=== PATIENT | female | born 2000 | race Native Hawaiian/Other Pacific Islander ===

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

== ENCOUNTER 2020-07-05 12:32 | Emergency (ER) | payer MEDICAID, OTHER ==
[2020-07-05 12:54] VITALS: BP 130/82; PULSE 75; RESP 20; TEMP 98.4
--- NOTE | 2020-07-05 13:29 | XR ---
EXAMINATION TYPE: XR hand complete RT DATE OF EXAM: 07/05/2020 COMPARISON: NONE HISTORY: Pain TECHNIQUE: Three views are submitted. FINDINGS: The osseous structures are intact. The joint spaces are preserved and there is no acute fracture or dislocation. Chronic appearing subluxation the DIP joint fifth digit. IMPRESSION: 1. No definite acute fracture or dislocation if symptoms persist, follow-up study in 7 to 10 days wo uld be suggested. 2. Chronic appearing deformity of the DIP joint of the fifth digit. Could be on the basis of previous ligamentous or soft tissue injury correlate clinically.
--- NOTE | 2020-07-05 13:49 | ED ---
Upper Extremity HPI - General Chief Complaint: Extremity Injury, Upper Stated Complaint: right thumb injury Time Seen by Provider: 07/05/20 12:55 Source: patient Mode of arrival: ambulatory Limitations: no limitations - History of Present Illness Initial Comments: Patient is a 20-year-old female presenting to the emergency department with a chief complaint of right thumb pain. Patient states about 12 pack of cans fell on her right finger. Patient states this occurred about one hour prior to arrival. Patient reports minimal pain but it appears to be exacerbated with movement. Patient states she has full range of motion of thumb. She does report some scaphoid tenderness. States there is no numbness or tingling. Denies taking medication to alleviate the symptoms. - Related Data Previous Rx's Medication Instructions Recorded Permethrin 5% Cream [Elimite] 1 applic TOPICAL ONCE #1 tube 08/15/19 Allergies Allergy/AdvReac Type Severity Reaction Status Date / Time No Known Allergies Allergy Verified 07/05/20 12:54 Review of Systems ROS Statement: Those systems with pertinent positive or pertinent negative responses have been documented in the HPI. ROS Other: All systems not noted in ROS Statement are negative. Past Medical History Past Medical History: No Reported History History of Any Multi-Drug Resistant Organisms: None Reported Additional Past Surgical History / Comment(s): left thumb Past Psychological History: No Psychological Hx Reported Smoking Status: Never smoker Past Alcohol Use History: None Reported Past Drug Use History: None Reported General Exam Limitations: no limitations General appearance: alert, in no apparent distress Head exam: Present: atraumatic, normocephalic, normal inspection Eye exam: Present: normal appearance, PERRL, EOMI Pupils: Present: normal accommodation ENT exam: Present: normal exam, normal oropharynx, mucous membranes moist Neck exam: Present: normal inspection, full ROM. Absent: tenderness Respiratory exam: Present: normal lung sounds bilaterally. Absent: respiratory distress, wheezes, rales Cardiovascular Exam: Present: regular rate, normal rhythm, normal heart sounds Extremities exam: Present: normal inspection, full ROM, tenderness (Scaphoid tenderness. First MCP joint tenderness.), normal capillary refill, other (+2 ulnar and radial possible early. Sensation intact in all the digits of the right hand.). Absent: pedal edema, joint swelling, calf tenderness Back exam: Present: normal inspection, full ROM. Absent: tenderness, CVA ten derness (R), CVA tenderness (L) Neurological exam: Present: alert, oriented X3, normal gait Psychiatric exam: Present: normal affect, normal mood Skin exam: Present: warm, dry, intact, normal color Course Vital Signs 07/05/20 12:49 Temperature 98.4 F Pulse Rate 75 Respiratory 20 Rate Blood Pressure 130/82 O2 Sat by Pulse 100 Oximetry Procedures - Orthopedic Splinting/Casting Injury #1 Side: right Upper Extremity Immobilizer: thumb spica, Justo wrap, synthetic pre-padded splint Medical Decision Making - Medical Decision Making Patient is 20-year-old female presenting to the emergency department with a chief complaint of right thumb injury. On physical examination patient does have scaphoid tenderness but has full range of motion. She is neurovascularly intact in the right thumb. X-rays are negative for acute fracture or dislocations in the right hand. Advised the patient to obtain a repeat x-ray in 7-10 days. Thumb spica was applied. Patient was offered analgesia, she declined. She was advised to alternate between Tylenol and Motrin. Apply ice compress and keep arm elevated. Strict return parameters were thoroughly discussed with patient was understanding and agreeable. Case discussed with physician. Disposition Clinical Impression: Injury of right thumb Disposition: HOME SELF-CARE Condition: Stable Instructions (If sedation given, give patient instructions): Scaphoid Fracture (ED) Additional Instructions: Follow-up with an pc support specialist to obtain repeat x-rays. Alternate between Tylenol and Motrin for pain control. Return to emergency department if symptoms worsen. Is patient prescribed a controlled substance at d/c from ED?: No Referrals: None,Stated [Primary Care Provider] - 1-2 days Paul Kiser DO [Doctor of Osteopathic Medicine] - 1-2 days Time of Disposition: 13:48
== END 2020-07-05 14:06 | disposition home or self-care (01) ==
LOC: EC 12:32
DX: S69.91XA Unspecified injury of right wrist, hand and finger(s), initial encounter (principal); W20.8XXA Other cause of strike by thrown, projected or falling object, initial encounter; Y92.69 Other specified industrial and construction area as the place of occurrence of the external cause; Y99.0 Civilian activity done for income or pay
CPT/HCPCS: 99283

== ENCOUNTER 2021-07-12 14:40 | Emergency (ER) | payer MEDICAID ==
[2021-07-12 15:43] VITALS: RESP 16
[2021-07-12 16:15] LABS: Appearance,Urine Clear (Clear); Bilirubin,Urine Negative (Negative); Blood,Urine Negative (Negative); Color,Urine Yellow; Glucose,Urine (UA) Negative (Negative); Ketones,Urine Negative (Negative); Leukocyte Esterase,Urine Negative (Negative); Nitrite,Urine Negative (Negative); PH, Urine 7.5 (5.0-8.0); Protein,Urine Trace (Negative); Specific Gravity,Urine 1.028 (1.001-1.035); Urobilinogen,Urine <2.0 mg/dL (<2.0)
[2021-07-12] MEDS ORDERED: SODIUM CHLORIDE 0.9% 1,000 ML IV STA (16:41)
[2021-07-12] MEDS ORDERED: KETOROLAC 15 MG/ML 1 ML VIAL IVP STA (16:41)
[2021-07-12] MEDS ORDERED: ONDANSETRON 4 MG/2 ML VIAL IVP STA (16:41)
--- NOTE | 2021-07-12 16:43 | ED ---
Abdominal Pain HPI - General Chief Complaint: Abdominal Pain Stated Complaint: Abd Pain Time Seen by Provider: 07/12/21 16:32 Source: patient Mode of arrival: ambulatory Limitations: no limitations - History of Present Illness Initial Comments: 21-year-old previously healthy female presents emergency room with reported nausea, vomiting, diarrhea and abdominal pain which started last night. States that she has had multiple episodes of nonbilious, nonbloody vomiting and has had difficulty holding down any water. Pain is located in the left lower quadrant and radiates into her groin. No history of similar pain in the past. Denies any abnormal vaginal bleeding or discharge. No concern for or sexually transmitted infections. Denies dysuria, hematuria or difficulty voiding. Does admit to some diarrhea which is loose and brown. No recent antibiotic use. Denies fevers. No other alleviating, precipitating or modifying factors - Related Data Home Medications Medication Instructions Recorded Confirmed No Known Home Medications 07/12/21 07/21/21 Allergies Allergy/AdvReac Type Severity Reaction Status Date / Time No Known Allergies Allergy Verified 07/21/21 09:56 Review of Systems ROS Statement: Those systems with pertinent positive or pertinent negative responses have been documented in the HPI. ROS Other: All systems not noted in ROS Statement are negative. Past Medical History Past Medical History: No Reported History History of Any Multi-Drug Resistant Organisms: None Reported Additional Past Surgical History / Comment(s): left thumb Past Psychological History: No Psychological Hx Reported Smoking Status: Never smoker Past Alcohol Use History: None Reported Past Drug Use History: None Reported General Exam Limitations: no limitations General appearance: alert, in no apparent distress Head exam: Present: atraumatic, normocephalic, normal inspection Eye exam: Present: normal appearance, PERRL, EOMI. Absent: scleral icterus, conjunctival injection, periorbital swelling ENT exam: Present: normal exam, mucous membranes moist Neck exam: Present: normal inspection. Absent: tenderness, meningismus, lymphadenopathy Respiratory exam: Present: normal lung sounds bilaterally. Absent: respiratory distress, wheezes, rales, rhonchi, stridor Cardiovascular Exam: Present: regular rate, normal rhythm, normal heart sounds. Absent: systolic murmur, diastolic murmur, rubs, gallop, clicks GI/Abdominal exam: Present: soft, tenderness (llq), normal bowel sounds. Absent: distended, guarding, rebound, rigid Extremities exam: Present: normal inspection, full ROM, normal capillary refill. Absent: tenderness, pedal edema, joint swelling, calf tenderness Back exam: Present: normal inspection Neurological exam: Present: alert, oriented X3, CN II-XII intact Psychiatric exam: Present: normal affect, normal mood Skin exam: Present: warm, dry, intact, normal color. Absent: rash Course Vital Signs 07/12/21 07/12/21 15:40 21:06 Temperature 98.4 F 98.0 F Pulse Rate 69 71 Respiratory 16 16 Rate Blood Pressure 122/81 98/61 O2 Sat by Pulse 98 98 Oximetry - Reevaluation(s) Reevaluation #1: Spoke with Dr. Williamson - patient prefers to follow up on Tuesday07/12/21 20:39 Medical Decision Making - Medical Decision Making Upon arrival patient was placed into hallway . Thorough history and physical exam was performed. IV is established the patient is given a dose of Toradol and Zofran. Laboratory studies are conducted and are within normal limits. Because of the patient's significant pain I did perform a CT of her abdomen and pelvis which demonstrates a large cystic pelvic mass probably a cyst arising from the right ovary. This is followed up with a pelvic ultrasound which demonstrates a large midline cystic pelvic mass. I did call and speak with Dr. Williamson. Patient given the option whether she would like to go home and follow up in office on Tuesday versus the hospitalist for pain control and to Dr. Williamson in the morning. Patient states her pain is improved at this time and would like to go home and follow up in office. She is instructed to call the office in the morning and states that she is instructed to be seen on Tuesday. Dr. Burroughs states the patient will likely need surgical treatment. The patient is a new or worsening symptoms she should return to the emergency room. Patient given written and verbal discharge instructions and discharged home in stable condition - Lab Data Result diagrams: 07/12/21 17:06 07/12/21 17:06 Lab Results 07/12/21 07/12/21 07/12/21 Range/Units 16:05 16:05 17:06 WBC 6.2 (3.8-10.6) k/uL RBC 4.11 (3.80-5.40) m/uL Hgb 12.3 (11.4-16.0) gm/dL Hct 37.7 (34.0-46.0) % MCV 91.6 (80.0-100.0) fL MCH 30.0 (25.0-35.0) pg MCHC 32.8 (31.0-37.0) g/dL RDW 12.6 (11.5-15.5) % Plt Count 256 (150-450) k/uL MPV 7.5 Neutrophils % 86 % Lymphocytes % 11 % Monocytes % 2 % Eosinophils % 0 % Basophils % 0 % Neutrophils # 5.3 (1.3-7.7) k/uL Lymphocytes # 0.6 L (1.0-4.8) k/uL Monocytes # 0.1 (0-1.0) k/uL Eosinophils # 0.0 (0-0.7) k/uL Basophils # 0.0 (0-0.2) k/uL Sodium (137-145) mmol/L Potassium (3.5-5.1) mmol/L Chloride (98-107) mmol/L Carbon Dioxide (22-30) mmol/L Anion Gap mmol/L BUN (7-17) mg/dL Creatinine (0.52-1.04) mg/dL Est GFR (CKD-EPI)AfAm (>60 ml/min/1.73 sqM) Est GFR (CKD-EPI)NonAf (>60 ml/min/1.73 sqM) Glucose (74-99) mg/dL Calcium (8.4-10.2) mg/dL Total Bilirubin (0.2-1.3) mg/dL AST (14-36) U/L ALT (4-34) U/L Alkaline Phosphatase (38-126) U/L Total Protein (6.3-8.2) g/dL Albumin (3.5-5.0) g/dL Lipase (23-300) U/L Urine Color Yellow Urine Appearance Clear (Clear) Urine pH 7.5 (5.0-8.0) Ur Specific [place] 1.028 (1.001-1.035) Urine Protein Trace H (Negative) Urine Glucose (UA) Negative (Negative) Urine Ketones Negative (Negative) Urine Blood Negative (Negative) Urine Nitrite Negative (Negative) Urine Bilirubin Negative (Negative) Urine Urobilinogen <2.0 (<2.0) mg/dL Ur Leukocyte Esterase Negative (Negative) Urine HCG, Qual Not Detected (Not Detectd) 07/12/21 Range/Units 17:06 WBC (3.8-10.6) k/uL RBC (3.80-5.40) m/uL Hgb (11.4-16.0) gm/dL Hct (34.0-46.0) % MCV (80.0-100.0) fL MCH (25.0-35.0) pg MCHC (31.0-37.0) g/dL RDW (11.5-15.5) % Plt Count (150-450) k/uL MPV Neutrophils % % Lymphocytes % % Monocytes % % Eosinophils % % Basophils % % Neutrophils # (1.3-7.7) k/uL Lymphocytes # (1.0-4.8) k/uL Monocytes # (0-1.0) k/uL Eosinophils # (0-0.7) k/uL Basophils # (0-0.2) k/uL Sodium 140 (137-145) mmol/L Potassium 4.1 (3.5-5.1) mmol/L Chloride 108 H (98-107) mmol/L Carbon Dioxide 23 (22-30) mmol/L Anion Gap 9 mmol/L BUN 9 (7-17) mg/dL Creatinine 0.62 (0.52-1.04) mg/dL Est GFR (CKD-EPI)AfAm >90 (>60 ml/min/1.73 sqM) Est GFR (CKD-EPI)NonAf >90 (>60 ml/min/1.73 sqM) Glucose 100 H (74-99) mg/dL Calcium 9.5 (8.4-10.2) mg/dL Total Bilirubin 0.4 (0.2-1.3) mg/dL AST 19 (14-36) U/L ALT 9 (4-34) U/L Alkaline Phosphatase 73 (38-126) U/L Total Protein 8.3 H (6.3-8.2) g/dL Albumin 4.5 (3.5-5.0) g/dL Lipase 163 (23-300) U/L Urine Color Urine Appearance (Clear) Urine pH (5.0-8.0) Ur Specific [place] (1.001-1.035) Urine Protein (Negative) Urine Glucose (UA) (Negative) Urine Ketones (Negative) Urine Blood (Negative) Urine Nitrite (Negative) Urine Bilirubin (Negative) Urine Urobilinogen (<2.0) mg/dL Ur Leukocyte Esterase (Negative) Urine HCG, Qual (Not Detectd) Disposition Clinical Impression: Abdominal pain, Ovarian cystic mass Disposition: HOME SELF-CARE Condition: Stable Instructions (If sedation given, give patient instructions): Ovarian Cyst (ED) Additional Instructions: You must call the office tomorrow to make an appointment for Tuesday. You will be seen on Tuesday by Dr. Williamson in her office. You will likely need surgery. Take 400 mg of Motrin for pain every 6 hours. Return to the ED for any new or worsening symptoms. Is patient prescribed a controlled substance at d/c from ED?: No Referrals: Deepti Williamson DO [Doctor of Osteopathic Medicine] - 1-2 days Time of Disposition: 20:54
[2021-07-12 17:10] LABS: Basophils % (A) 0 %; Eosinophils % (A) 0 %; HCT 37.7 % (34.0-46.0); HGB 12.3 gm/dL (11.4-16.0); Lymphocytes # (A) 0.6 k/uL (1.0-4.8); Lymphocytes % (A) 11 %; MCHC 32.8 g/dL (31.0-37.0); MCV 91.6 fL (80.0-100.0); Mean Platelet Volume 7.5; Monocytes # (A) 0.1 k/uL (0-1.0); Monocytes % (A) 2 %; Neutrophils # (A) 5.3 k/uL (1.3-7.7); Neutrophils % (A) 86 %; Platelet Count 256 k/uL (150-450); RBC 4.11 m/uL (3.80-5.40); RDW 12.6 % (11.5-15.5); WBC 6.2 k/uL (3.8-10.6)
[2021-07-12 17:27] LABS: ALT 9 U/L (4-34); AST 19 U/L (14-36); African American GFR (CKD) >90 (>60 ml/min/1.73 sqM); Albumin 4.5 g/dL (3.5-5.0); Alkaline Phosphatase 73 U/L (38-126); Anion Gap 9 mmol/L; Blood Urea Nitrogen 9 mg/dL (7-17); Calcium 9.5 mg/dL (8.4-10.2); Carbon Dioxide 23 mmol/L (22-30); Chloride 108 mmol/L (98-107); Glucose 100 mg/dL (74-99); Lipase 163 U/L (23-300); Non-African American GFR(CKD) >90 (>60 ml/min/1.73 sqM); Potassium 4.1 mmol/L (3.5-5.1); Sodium 140 mmol/L (137-145); Total Bilirubin 0.4 mg/dL (0.2-1.3); Total Protein 8.3 g/dL (6.3-8.2)
--- NOTE | 2021-07-12 18:18 | CT ---
EXAMINATION TYPE: CT abdomen pelvis w con DATE OF EXAM: 07/12/2021 COMPARISON: None HISTORY: Left sided pelvic pain. CT DLP: 717.8 mGycm Automated exposure control for dose reduction was used. CONTRAST: Performed with IV Contrast, patient injected with 100 mL of Isovue 300. Exam from the diaphragm to the floor the pelvis with IV contrast. Lung bases are clear. There is no pleural effusion. Heart size is normal. There is no pericardial eff usion. Liver spleen stomach pancreas gallbladder appear intact. Bile ducts are not dilated. There is no adrenal mass. Kidneys show satisfactory contrast opacification. There is no hydronephrosi s. Ureters are not dilated. Delayed images show normal renal excretion. There is no retroperitoneal a denopathy. Appendix not well seen. No sign of thickened appendix. There is large midline cystic mass. There is posterior displacement of the uterus and some effacement of the urinary bladder. Mass measures 10.5 cm in diameter. There is a smaller cyst in the right adne xal region measuring 3 cm. Mass is slightly more to the right side. There is no free fluid in the pel vis. Uterus appears normal. Urinary bladder appears intact. There is no mesenteric edema. There is no ascites or free air. There is no bowel obstruction. There is L5 spondylolysis with a minimal first-degree L5-S1 spondylolisthesis. There is thoracolumbar dextroscoliotic deformity. Bony pelvis is intact. Hip joints are intact. IMPRESSION: Large cystic pelvic mass is probably a cyst arising from the right ovary. Follow-up is recommended.
--- NOTE | 2021-07-12 20:19 | US ---
EXAMINATION TYPE: US pelvis complete transvag DATE OF EXAM: 07/12/2021 COMPARISON: CT 2020 CLINICAL HISTORY: llq pain. Pelvic pain x 2 day, N/V/D, 0 TECHNIQUE: . Transabdominal sonographic images of the pelvis were acquired. Transvaginal sonographi c images were medically necessary to better assess the following anatomy: ovaries Date of LMP: couple days ago EXAM MEASUREMENTS: Uterus: 6.5 x 4.9 x 3.7 cm Endometrial Stripe: 0.6 cm 1. Uterus: anteverted 2. Endometrium: appears wnl 3. Right Ovary: not seen due to overlying bowel gas and pelvic mass 4. Left Ovary: not seen due to overlying bowel gas and pelvic mass 5. Bilateral Adnexa: wnl 6. Posterior cul-de-sac: wnl 10.0 x 6.8 x 9.2cm cystic mass seen midline pelvis superior to uterus and bladder IMPRESSION: Is large midline cystic pelvic mass is probably arising from ovary. Normal uterus. Normal endometrium . No free fluid.
[2021-07-12 21:08] VITALS: BP 98/61; PULSE 71; TEMP 98
== END 2021-07-12 21:12 | disposition home or self-care (01) ==
LOC: EC 14:40
DX: N83.202 Unspecified ovarian cyst, left side (principal)
CPT/HCPCS: 36415; 80053; 83690; 85025; 81003; 81025; 76856; 76830; 74177; 99284; 96374; 96375; J2405; J1885; Q9967

== ENCOUNTER → 2021-07-16 | Outpatient (CLI) | payer MEDICAID ==
[2021-07-16 16:14] LABS: Basophils % (A) 1 %; Eosinophils # (A) 0.1 k/uL (0-0.7); Eosinophils % (A) 2 %; HGB 11.1 gm/dL (11.4-16.0); Lymphocytes # (A) 1.4 k/uL (1.0-4.8); Lymphocytes % (A) 41 %; MCH 29.5 pg (25.0-35.0); MCHC 31.7 g/dL (31.0-37.0); MCV 93.1 fL (80.0-100.0); Mean Platelet Volume 7.4; Monocytes # (A) 0.2 k/uL (0-1.0); Monocytes % (A) 5 %; Neutrophils # (A) 1.7 k/uL (1.3-7.7); Neutrophils % (A) 50 %; Platelet Count 232 k/uL (150-450); RBC 3.76 m/uL (3.80-5.40); RDW 12.5 % (11.5-15.5); WBC 3.4 k/uL (3.8-10.6)
== END | disposition home or self-care (01) ==
LOC: LABPAT 15:10
PROVIDERS: ATTEND Obstetrics & Gynecology Obstetrics
DX: Z01.812 Encounter for preprocedural laboratory examination (principal); R10.9 Unspecified abdominal pain; N83.209 Unspecified ovarian cyst, unspecified side
CPT/HCPCS: 36415; 85025

== ENCOUNTER 2021-07-21 09:04 | Day surgery (SDC) | payer MEDICAID ==
[~2021-07-21 09:04] MED LIST: ACETAMINOPHEN IV (For NPO) 1,000 MG in EMPTY BAG 1 BAG IVPB ONE; DEXAMETHASONE SOD PHOSPHATE 4 MG/ML 1 ML VIAL IV ONE; ONDANSETRON 4 MG/2 ML VIAL IVP ONE; Pre Op ABX Message 1 EACH MISC MISCELLANE ONE
[2021-07-21] MEDS ORDERED: LIDOCAINE 1% (10MG/ML) FOR IV START INTRADERMA ONE (10:10)
[2021-07-21] MEDS: LACTATED RINGERS 1,000 ML IV SCH ×2 (10:11→13:25)
[2021-07-21] MEDS ORDERED: MIDAZOLAM 2 MG/2 ML VIAL IV ONE (10:27)
--- NOTE | 2021-07-21 11:13 | P.PN ---
Progress Note - Text Progress Note Date: 07/21/21 Surgical note clarification. Within the body of the history and physical of states right ovarian cyst 8 cm in size, surgical plan is operative laparoscopy with drainage of right ovarian cyst.
[2021-07-21] MEDS ORDERED: MIDAZOLAM 2 MG/2 ML VIAL ONE (11:27)
[2021-07-21] MEDS ORDERED: LIDOCAINE 1% INJ 10MG/ML (20 ML MDV) ONE (11:27)
[2021-07-21] MEDS ORDERED: fentaNYL (PF) 50 MCG/ML 2 ML AMP ONE (11:27)
[2021-07-21] MEDS ORDERED: NEOSTIGMINE 1 MG/ML 10 ML VIAL ONE (11:27)
[2021-07-21] MEDS ORDERED: ROCURONIUM 10 MG/ML (5 ML VIAL) IV ONE (11:27)
[2021-07-21] MEDS ORDERED: PROPOFOL 10 MG/ML 20 ML VIAL IV ONE (11:27)
[2021-07-21] MEDS ORDERED: ACETAMINOPHEN IV (For NPO) 1,000 MG/100 ML VIAL ONE (11:27)
[2021-07-21] MEDS ORDERED: GLYCOPYRROLATE 0.2 MG/ML 2 ML VIAL ONE (11:27)
[2021-07-21] MEDS ORDERED: HYDROmorphone (PF) 1 MG/ML ONE (11:27)
[2021-07-21] MEDS ORDERED: BUPIVACAIN-EPI 0.25%-1:200,000 30 ML VIAL SQ ONE ×2 (12:10→12:19)
--- NOTE | 2021-07-21 12:27 | P.OP ---
Date of Procedure: 07/21/21 Preoperative Diagnosis: Large ovarian cyst Postoperative Diagnosis: Same Procedure(s) Performed: Operative laparoscopy, drainage of left ovarian cyst Anesthesia: STEPHON Surgeon: Deepti Williamson Amf Mechanic #1: Kezia Lyons Estimated Blood Loss (ml): 5 IV fluids (ml): 700 Urine output (ml): 100 Pathology: none sent Condition: stable Disposition: PACU Indications for Procedure: Abdominal pain, noted large ovarian cyst, simple in appearance Operative Findings: Enlarged left ovary with simple appearing cyst, upon drainage straw-colored fluid is noted. The other ovary is appreciated to be normal. Endometrial implants noted on the uterosacral ligaments posteriorly. Description of Procedure: Patient was taken to the operating suite where general anesthesia was obtained without difficulty by the anesthesia department. She was prepped and draped in normal sterile fashion in the dorsal lithotomy position. A red rubber catheter was used to drain the bladder of clear yellow urine. A speculum was placed the anterior lip of the cervix is visualized grasped with a single-tooth tenaculum and acorn uterine manipulator was advanced into the cervix as a means to manipulate the uterus throughout the procedure. Attention was then turned the patient's abdomen where in the umbilical fold a small skin incision is made. Through this incision the Veress needles placed. Once appears needles deemed to be in the proper position with a drop of CO2 pressure CO2 insufflation was allowed to occur. 3 L of gas or used to obtain pneumoperitoneum. At this time the additional port site is placed at 10 cm lateral to 7 m inferior to midline port this is a 5 mm port placed under direct visualization. The above-noted findings were visualized. A monopolar hook was placed through the right operative report any defect was made in the cyst wall, straw-colored fluid was drained from the cyst. Approximately 800 mL of fluid was drained from the cyst. The cyst was decompressed with minimal ovarian tissue appreciated for the fallopian tube. The the right ovary was visualized and normal in nature. The pelvis was then suctioned of any remaining cyst fluid. All instrument removed from the patient's abdomen after multiple pictures were taken before and after cyst drainage. The skin was closed with 4-0 Vicryl in a subarticular fashion Steri- Strips and sterile dressings were applied. Attention then turned to the patient's vaginal vault the acorn uterine macular was removed without difficulty the single-tooth tenaculum was taken off of the anterior lip of the cervix and hemostasis was appreciated. All counts were noted be correct 2 and the procedure. Patient tolerated procedure well and was taken the recovery room awake in stable condition.
[2021-07-21] MEDS: HYDROmorphone 0.5 MG/0.5 ML SYRINGE IVP PRN ×2 (12:48→13:20)
[2021-07-21 12:52] VITALS: TEMP 97.2
[2021-07-21 13:18] VITALS: RESP 16
[2021-07-21] MEDS ORDERED: IBUPROFEN 200 MG TAB PO ONE (14:31)
[2021-07-21 14:42] VITALS: BP 93/56; PULSE 64
== END 2021-07-21 15:30 | disposition home or self-care (01) ==
LOC: OR 09:04
PROVIDERS: ATTEND Obstetrics & Gynecology Obstetrics
DX: N83.202 Unspecified ovarian cyst, left side (principal); K63.9 Disease of intestine, unspecified; Z98.890 Other specified postprocedural states
CPT/HCPCS: 81025; 49322; J2250; J1100; J2710; J2405; J2001; J3010; J1170 ×2; J0131; J2704

== ENCOUNTER → 2022-07-06 | Outpatient (CLI) | payer OTHER ==
[2022-07-06 12:15] LABS: Appearance,Urine Cloudy (Clear); Bacteria,Urine Occasional /hpf; Bilirubin,Urine Negative (Negative); Blood,Urine Negative (Negative); Color,Urine Yellow; Glucose,Urine (UA) Negative (Negative); Ketones,Urine 1+ (Negative); Leukocyte Esterase,Urine Negative (Negative); Mucus,Urine Occasional /hpf; Nitrite,Urine Negative (Negative); PH, Urine 5.5 (5.0-8.0); Protein,Urine Trace (Negative); RBC,Urine 3 /hpf (0-5); Specific Gravity,Urine 1.027 (1.001-1.035); Squamous Epithelial Cell,Urine 3 /hpf (0-4); Urobilinogen,Urine <2.0 mg/dL (<2.0); WBC,Urine 1 /hpf (0-5)
--- NOTE | 2022-07-06 13:07 | XR ---
Lumbar spine HISTORY: Back pain 3 views the lumbar spine There is a dextroscoliosis centered at L1-2. Rotatory component is suspected. Bilateral spondylolysis suspected L5. There is loss of disc height at intervertebral levels L5-S1 and L4-5, minimal anteroli sthesis grade 1 L5-S1. IMPRESSION: Spondylolysis, degenerative disc disease, scoliosis.
--- NOTE | 2022-07-06 13:09 | XR ---
Thoracic spine HISTORY: Pain 3 views of the thoracic spine Reverse S-shaped scoliosis is present. There is a rotatory component. Thoracic vertebral vertebral elie dies show preserved height. There is multilevel spondylosis. No evident fracture. IMPRESSION: No acute fracture or subluxation
== END | disposition home or self-care (01) ==
LOC: LABWHC1 11:50
PROVIDERS: ATTEND Emergency Medicine
DX: S23.3XXA Sprain of ligaments of thoracic spine, initial encounter (principal); S39.012A Strain of muscle, fascia and tendon of lower back, initial encounter; M43.00 Spondylolysis, site unspecified; M51.36 Other intervertebral disc degeneration, lumbar region; M41.9 Scoliosis, unspecified; X58.XXXA Exposure to other specified factors, initial encounter
CPT/HCPCS: 72072; 72100; 81001; 81025

== ENCOUNTER → 2022-08-19 | Outpatient (CLI) | payer OTHER ==
--- NOTE | 2022-08-19 09:49 | MR ---
EXAMINATION TYPE: MR angelesine/lspine wo con DATE OF EXAM: 08/19/2022 COMPARISON: X-rays thoracic and lumbar spine July 06, 2022 HISTORY: Mid back and low back pain on right side due to lifting injury at work 2 months ago TECHNIQUE: Multiplanar, multisequence imaging of the thoracic and lumbar spine are performed without IV contrast. FINDINGS: T-SPINE: FINDINGS: Levoconvex scoliosis is seen in lower thoracic spine. Spinal cord shows normal caliber and signal as it courses the thoracic spine. Vertebral body heights are satisfactory. Mild disc space n arrowing in the midthoracic spine. Posterior disc herniations T6-C7 through the T8-T9 levels are note d. Bone marrow signal intensity is maintained. Axial images at T6-T7 level shows tiny right paracentral disc protrusion. There are larger right para central disc protrusions at T7-T8 and T8-T9 level effacing anterior thecal sac up to ventral surface of spinal cord sagittal image 8 for reference. No suspicious incidental finding the thorax. IMPRESSION: Levoconvex scoliosis with degenerative changes in the mid to lower risk spine as detailed above. L-SPINE: Dextroconvex scoliosis centered in the upper lumbar spine. Vertebral body heights are maintained. Dis c desiccation L5-S1 level is seen. Alignment is satisfactory and sagittal images. Conus medullaris no rmal in position and signal ending superior L1 level. Bone marrow signal intensity is maintained. Axial images show no large disc herniation at any lumbar level. There is [id number] multilevel facet arthropathy. Bilateral pars defect L5 level without significant spondylolisthesis. There is no spinal canal stenosis, neural foraminal narrowing, or evidence of nerve root compromise. Distended bladder partially imaged. There is partial visualization of right ovary with 2.6 cm round l esion right presacral region superior aspect right ovary favoring nonsimple cyst or cystic lesion. Fo llow-up pelvic ultrasound is advised to further evaluate and characterize. IMPRESSION: Scoliosis with multilevel degenerative change as detailed above. Nonsimple 2.6 cm cyst or cystic lesion superior aspect right ovary warrants ultrasound follow-up to further evaluate. Not see n on ultrasound July 12, 2021
== END | disposition home or self-care (01) ==
LOC: RADMRIMAIN 08:13
PROVIDERS: ATTEND Emergency Medicine
DX: S23.3XXD Sprain of ligaments of thoracic spine, subsequent encounter (principal); S39.012D Strain of muscle, fascia and tendon of lower back, subsequent encounter; M41.9 Scoliosis, unspecified; M47.816 Spondylosis without myelopathy or radiculopathy, lumbar region; N83.201 Unspecified ovarian cyst, right side
CPT/HCPCS: 72146; 72148

== ENCOUNTER → 2023-01-06 | Outpatient (CLI) | payer OTHER ==
--- NOTE | 2023-01-07 07:32 | XR ---
EXAMINATION TYPE: XR scoliosis survey DATE OF EXAM: 01/06/2023 10:49 AM COMPARISON: None CLINICAL INDICATION:Female, 22 years old with history of THORACOLUMBAR SCOLIOSIS LS SPONDYLOLYSIS; TECHNIQUE: Frontal and lateral views of the spine while standing. FINDINGS: There are 12 ribs bilaterally. There is levoscoliosis apex T8-T9. With a competent mesentery dextrosc oliosis of the lumbar spine with a rotational component. Salguero angle of the thoracic spine of 39 and a nd of the lumbar spine 21 degrees. No vertebral anomalies are identified. Vertebral heights are relat ively maintained. There is grade 1 anterolisthesis of L5 on S1 with spondylolysis. There is mild mult ilevel disc degeneration changes with osteophyte formation of the mid thoracic spine on lateral view. IMPRESSION: 1. Scoliosis changes with Salguero angle of the thoracic spine of 39 and and of the lumbar spine 21 degr ees. 2. Grade 1 anterolisthesis of L5 on S1 spondylolysis.
== END | disposition home or self-care (01) ==
LOC: RADXRMAIN 10:34
PROVIDERS: ATTEND Nurse Practitioner Family
DX: M41.35 Thoracogenic scoliosis, thoracolumbar region (principal); M51.85 Other intervertebral disc disorders, thoracolumbar region; M43.17 Spondylolisthesis, lumbosacral region
CPT/HCPCS: 72082

== ENCOUNTER 2023-12-27 21:37 | Emergency (ER) | payer MEDICAID ==
[2023-12-27 21:46] VITALS: RESP 18
[2023-12-27] MEDS: ACETAMINOPHEN TAB 500 MG TAB PO STA (22:32)
--- NOTE | 2023-12-27 22:32 | ED ---
Abdominal Pain HPI - General Chief Complaint: Abdominal Pain Stated Complaint: Abd pain,Headache Time Seen by Provider: 12/27/23 21:47 Source: patient Mode of arrival: ambulatory Limitations: no limitations - History of Present Illness Initial Comments: 23-year-old female presenting to the ED with a chief complaint of abdominal pain. Patient reports that she may be . Her last menstrual period was November 16, 2023 and is currently estimated to be 5 weeks and 6 days . Patient states over the past 5 days has had pain in her lower abdomen and some vaginal bleeding as well. Reports since onset pain has worsened in severity prompting presentation to the ED for further evaluation. Denies changes in bowel or bladder habits. Denies fever or chills. Denies chest pain or shortness of breath. No other complaints at this time. - Related Data Previous Rx's Medication Instructions Recorded Ibuprofen [Motrin] 600 mg PO Q8HR PRN #30 tab 12/28/23 Allergies Allergy/AdvReac Type Severity Reaction Status Date / Time No Known Allergies Allergy Verified 12/27/23 21:44 Review of Systems ROS Statement: Those systems with pertinent positive or pertinent negative responses have been documented in the HPI. ROS Other: All systems not noted in ROS Statement are negative. Past Medical History Past Medical History: No Reported History Additional Past Medical History / Comment(s): ovarian cyst History of Any Multi-Drug Resistant Organisms: None Reported Additional Past Surgical History / Comment(s): left thumb Past Anesthesia/Blood Transfusion Reactions: No Reported Reaction Past Psychological History: No Psychological Hx Reported Smoking Status: Never smoker Past Alcohol Use History: None Reported Past Drug Use History: None Reported General Exam Limitations: no limitations General appearance: alert, in distress Neck exam: Present: normal inspection Respiratory exam: Present: normal lung sounds bilaterally Cardiovascular Exam: Present: regular rate GI/Abdominal exam: Present: soft (Tenderness to palpation of the lower abdomen worse in the suprapubic/right lower quadrant), normal bowel sounds External exam: Present: other (Exam chaperoned by Jessica MEZA. Active vaginal bleeding. Unable to visualize cervical os secondary to bleeding.) Neurological exam: Present: alert, oriented X3 Skin exam: Present: warm, dry Course Vital Signs 12/27/23 12/27/23 12/28/23 21:41 23:45 01:20 Temperature 97.6 F 98 F Pulse Rate 98 77 82 Respiratory 18 18 18 Rate Blood Pressure 154/93 118/78 106/83 O2 Sat by Pulse 100 98 99 Oximetry Medical Decision Making - Medical Decision Making Was pt. sent in by a medical professional or institution (KANDI Marsh, CARE MANAGEMENT COORDINATOR, urgent care, hospital, or retirement...) When possible be specific @ -No Did you speak to anyone other than the patient for history (EMS, parent, family, police, friend...)? What history was obtained from this source @ -No Did you review nursing and triage notes (agree or disagree)? Why? @ -I reviewed and agree with nursing and triage notes Were old charts reviewed (outside hosp., previous admission, EMS record, old EKG, old radiological studies, urgent care reports/EKG's, retirement records)? Report findings @ -No old charts were reviewed Differential Diagnosis (chest pain, altered mental status, abdominal pain women, abdominal pain men, vaginal bleeding, weakness, fever, dyspnea, syncope, headache, dizziness, GI bleed, back pain, seizure, CVA, palpatations, mental health, musculoskeletal)? @ -Differential Vaginal Bleeding: Spontaneous , threatened , molar , ectopic , bloody show, incompetent cervix, abruptioplacenta, placenta previa, uterine rupture, dysfunctional uterine bleeding, hemorrhage, uterine fibroids, this is not meant to be an all-inclusive list. EKG interpreted by me (3pts min.). @ -None X-rays interpreted by me (1pt min.). @ -None done CT interpreted by me (1pt min.). @ -None done U/S interpreted by me (1pt. min.). @ -Ultrasound interpreted by me showing complex cystic fluid within the bilateral adnexa likely representing a complicated cyst. What testing was considered but not performed or refused? (CT, X-rays, U/S, labs)? Why? @ -None What meds were considered but not given or refused? Why? @ -None Did you discuss the management of the patient with other professionals (carolyn berkowitz i.e. KANDI Marsh, CARE MANAGEMENT COORDINATOR, lab, RT, psych nurse, social sciences department chair, ferry pilot, teacher, chief administrative officer, manager of case)? Give summary @ -No Was smoking cessation discussed for >3mins.? @ -No Was critical care preformed (if so, how long)? @ -No Were there social determinants of health that impacted care today? How? (Homelessness, low income, unemployed, alcoholism, drug addiction, transportation, low edu. Level, literacy, decrease access to med. care, prison, rehab)? @ -No Was there de-escalation of care discussed even if they declined (Discuss DNR or withdrawal of care, Hospice)? DNR status @ -No What co-morbidities impacted this encounter? (DM, HTN, Smoking, COPD, CAD, Cancer, CVA, ARF, Chemo, Hep., AIDS, mental health diagnosis, sleep apnea, morbid obesity)? @ -None Was patient admitted / discharged? Hospital course, mention meds given and route, prescriptions, significant lab abnormalities, going to OR and other pertinent info. @ -Discharge 23-year-old female presenting to the ED with complaints of right lower abdominal pain and vaginal bleeding for the past 5 days however pain worsening today prompting presentation to the ED for further evaluation. At initial onset, patient reported pain 10 out of 10 however reports it has significantly improved and now is at a 2 out of 10 in severity. Laboratory studies reviewed. Labs including CBC, chemistry panel, urinalysis, serum hCG largely unremarkable. Ultrasound showed evidence of a complex cyst. Patient discharged home in stable condition. Advise close follow-up with her OB, Dr. Williamson. Discussed strict return precautions with patient who verbalized agreement. Undiagnosed new problem with uncertain prognosis? @ -No Drug Therapy requiring intensive monitoring for toxicity (Heparin, Nitro, Insuli n, Cardizem)? @ -No Were any procedures done? @ -No Diagnosis/symptom? @ -Complicated cyst Acute, or Chronic, or Acute on Chronic? @ -Acute Uncomplicated (without systemic symptoms) or Complicated (systemic symptoms)? @ -Uncomplicated Side effects of treatment? @ -No Exacerbation, Progression, or Severe Exacerbation? @ -No Poses a threat to life or bodily function? How? (Chest pain, [place], [place], pneumonia, PE, COPD, DKA, ARF, appy, cholecystitis, CVA, Diverticulitis, Homicidal, Suicidal, threat to staff... and all critical care pts) @ -No - Lab Data Result diagrams: 12/27/23 22:31 12/27/23 22:31 Lab Results 12/27/23 12/27/23 12/27/23 Range/Units 22:00 22:31 22:31 WBC 5.8 (3.8-10.6) k/uL RBC 4.28 (3.80-5.40) m/uL Hgb 10.6 L (11.4-16.0) gm/dL Hct 34.6 (34.0-46.0) % MCV 80.8 (80.0-100.0) fL MCH 24.7 L (25.0-35.0) pg MCHC 30.6 L (31.0-37.0) g/dL RDW 16.4 H (11.5-15.5) % Plt Count 291 (150-450) k/uL MPV 7.8 Neutrophils % 52 % Lymphocytes % 38 % Monocytes % 6 % Eosinophils % 2 % Basophils % 1 % Neutrophils # 3.0 (1.3-7.7) k/uL Lymphocytes # 2.2 (1.0-4.8) k/uL Monocytes # 0.3 (0-1.0) k/uL Eosinophils # 0.1 (0-0.7) k/uL Basophils # 0.0 (0-0.2) k/uL Hypochromasia Slight Anisocytosis Slight PT (10.0-12.5) sec INR (<1.2) APTT (22.0-30.0) sec Sodium 142 (137-145) mmol/L Potassium 3.7 (3.5-5.1) mmol/L Chloride 109 H (98-107) mmol/L Carbon Dioxide 22 (22-30) mmol/L Anion Gap 11 mmol/L BUN 13 (7-17) mg/dL Creatinine 0.67 (0.52-1.04) mg/dL Est GFR (CKD-EPI)AfAm >90 (>60 ml/min/1.73 sqM) Est GFR (CKD-EPI)NonAf >90 (>60 ml/min/1.73 sqM) Glucose 92 (74-99) mg/dL Calcium 9.5 (8.4-10.2) mg/dL Total Bilirubin 0.3 (0.2-1.3) mg/dL AST 19 (14-36) U/L ALT 12 (4-34) U/L Alkaline Phosphatase 66 (38-126) U/L Total Protein 8.3 H (6.3-8.2) g/dL Albumin 4.6 (3.5-5.0) g/dL Amylase 63 (30-110) U/L Lipase 345 H (23-300) U/L HCG, Quant <2.4 mIU/mL Urine Color Light Yellow Urine Appearance Cloudy H (Clear) Urine pH 5.5 (5.0-8.0) Ur Specific [place] 1.018 (1.001-1.035) Urine Protein Negative (Negative) Urine Glucose (UA) Negative (Negative) Urine Ketones Negative (Negative) Urine Blood Large H (Negative) Urine Nitrite Negative (Negative) Urine Bilirubin Negative (Negative) Urine Urobilinogen <2.0 (<2.0) mg/dL Ur Leukocyte Esterase Negative (Negative) Urine RBC >182 H (0-5) /hpf Urine WBC 1 (0-5) /hpf Ur Squamous Epith Cells 2 (0-4) /hpf Urine Bacteria Rare H (None) /hpf Urine Mucus Rare H (None) /hpf Urine Yeast (Budding) Few H (None) /hpf Blood Type Blood Type Confirm Blood Type Recheck Bld Type Recheck Status Antibody Screen Spec Expiration Date 12/27/23 12/27/23 12/27/23 Range/Units 22:35 22:35 22:40 WBC (3.8-10.6) k/uL RBC (3.80-5.40) m/uL Hgb (11.4-16.0) gm/dL Hct (34.0-46.0) % MCV (80.0-100.0) fL MCH (25.0-35.0) pg MCHC (31.0-37.0) g/dL RDW (11.5-15.5) % Plt Count (150-450) k/uL MPV Neutrophils % % Lymphocytes % % Monocytes % % Eosinophils % % Basophils % % Neutrophils # (1.3-7.7) k/uL Lymphocytes # (1.0-4.8) k/uL Monocytes # (0-1.0) k/uL Eosinophils # (0-0.7) k/uL Basophils # (0-0.2) k/uL Hypochromasia Anisocytosis PT 11.2 (10.0-12.5) sec INR 1.0 (<1.2) APTT 23.2 (22.0-30.0) sec Sodium (137-145) mmol/L Potassium (3.5-5.1) mmol/L Chloride (98-107) mmol/L Carbon Dioxide (22-30) mmol/L Anion Gap mmol/L BUN (7-17) mg/dL Creatinine (0.52-1.04) mg/dL Est GFR (CKD-EPI)AfAm (>60 ml/min/1.73 sqM) Est GFR (CKD-EPI)NonAf (>60 ml/min/1.73 sqM) Glucose (74-99) mg/dL Calcium (8.4-10.2) mg/dL Total Bilirubin (0.2-1.3) mg/dL AST (14-36) U/L ALT (4-34) U/L Alkaline Phosphatase (38-126) U/L Total Protein (6.3-8.2) g/dL Albumin (3.5-5.0) g/dL Amylase (30-110) U/L Lipase (23-300) U/L HCG, Quant mIU/mL Urine Color Urine Appearance (Clear) Urine pH (5.0-8.0) Ur Specific [place] (1.001-1.035) Urine Protein (Negative) Urine Glucose (UA) (Negative) Urine Ketones (Negative) Urine Blood (Negative) Urine Nitrite (Negative) Urine Bilirubin (Negative) Urine Urobilinogen (<2.0) mg/dL Ur Leukocyte Esterase (Negative) Urine RBC (0-5) /hpf Urine WBC (0-5) /hpf Ur Squamous Epith Cells (0-4) /hpf Urine Bacteria (None) /hpf Urine Mucus (None) /hpf Urine Yeast (Budding) (None) /hpf Blood Type B Positive Blood Type Confirm B Positive Blood Type Recheck No Previous Record Bld Type Recheck Status CABO Indicated Antibody Screen NEGATIVE Spec Expiration Date 12/30/20232334 Disposition Clinical Impression: Complex ovarian cyst Disposition: HOME SELF-CARE Condition: Good Instructions (If sedation given, give patient instructions): Ruptured Ovarian Cyst (ED), Ovarian Cyst (ED) Additional Instructions: Please return to the Emergency Department if symptoms worsen or any other concerns. Please follow-up with your PHYSICAL THER. Prescriptions: Ibuprofen [Motrin] 600 mg PO Q8HR PRN #30 tab PRN Reason: Pain Is patient prescribed a controlled substance at d/c from ED?: No Referrals: None,Stated [Primary Care Provider] - 1-2 days Time of Disposition: 01:30
[2023-12-27 22:36] LABS: Anisocytosis Slight; Basophils % (A) 1 %; Eosinophils # (A) 0.1 k/uL (0-0.7); Eosinophils % (A) 2 %; HCT 34.6 % (34.0-46.0); HGB 10.6 gm/dL (11.4-16.0); Hypochromasia Slight; Lymphocytes # (A) 2.2 k/uL (1.0-4.8); Lymphocytes % (A) 38 %; MCH 24.7 pg (25.0-35.0); MCHC 30.6 g/dL (31.0-37.0); MCV 80.8 fL (80.0-100.0); Mean Platelet Volume 7.8; Monocytes # (A) 0.3 k/uL (0-1.0); Monocytes % (A) 6 %; Neutrophils % (A) 52 %; Platelet Count 291 k/uL (150-450); RBC 4.28 m/uL (3.80-5.40); RDW 16.4 % (11.5-15.5); WBC 5.8 k/uL (3.8-10.6)
[2023-12-27 22:49] LABS: ALT 12 U/L (4-34); AST 19 U/L (14-36); African American GFR (CKD) >90 (>60 ml/min/1.73 sqM); Albumin 4.6 g/dL (3.5-5.0); Alkaline Phosphatase 66 U/L (38-126); Amylase 63 U/L (30-110); Anion Gap 11 mmol/L; Blood Urea Nitrogen 13 mg/dL (7-17); Calcium 9.5 mg/dL (8.4-10.2); Carbon Dioxide 22 mmol/L (22-30); Chloride 109 mmol/L (98-107); Glucose 92 mg/dL (74-99); Lipase 345 U/L (23-300); Non-African American GFR(CKD) >90 (>60 ml/min/1.73 sqM); Potassium 3.7 mmol/L (3.5-5.1); Sodium 142 mmol/L (137-145); Total Bilirubin 0.3 mg/dL (0.2-1.3); Total Protein 8.3 g/dL (6.3-8.2)
[2023-12-27 23:03] LABS: HCG,Quantitative Serum <2.4 mIU/mL
[2023-12-27 23:07] LABS: Partial Thromboplastin Time 23.2 sec (22.0-30.0); Prothrombin Time 11.2 sec (10.0-12.5)
[2023-12-28] MEDS: MORPHINE SULFATE 2 MG/ML SYRINGE IVP STA (00:06)
[2023-12-28 00:35] LABS: Appearance,Urine Cloudy (Clear); Bacteria,Urine Rare /hpf; Bilirubin,Urine Negative (Negative); Blood,Urine Large (Negative); Budding Yeast,Urine Few /hpf; Color,Urine Light Yellow; Glucose,Urine (UA) Negative (Negative); Ketones,Urine Negative (Negative); Leukocyte Esterase,Urine Negative (Negative); Mucus,Urine Rare /hpf; Nitrite,Urine Negative (Negative); PH, Urine 5.5 (5.0-8.0); Protein,Urine Negative (Negative); RBC,Urine >182 /hpf (0-5); Specific Gravity,Urine 1.018 (1.001-1.035); Squamous Epithelial Cell,Urine 2 /hpf (0-4); Urobilinogen,Urine <2.0 mg/dL (<2.0); WBC,Urine 1 /hpf (0-5)
--- NOTE | 2023-12-28 01:12 | US ---
EXAM: US Pelvis Transvaginal CLINICAL HISTORY: ITS.REASON US Reason: RLQ pain, vag bleeding, TECHNIQUE: Real-time transvaginal pelvic ultrasound with image documentation. Transvaginal imaging was used for better evaluation of the endometrium and adnexa. COMPARISON: 06/28/2021 FINDINGS: Uterus/cervix: Uterus measures 6.8 x 5.1 x 2.9 cm. Normal endometrial stripe thickness. No myometrial mass. Right ovary: . Endometrium measures 0.5 cm in thickness. Right ovary is not well seen secondary to overlying bowel gas. Left ovary: Left ovary is obscured by bowel gas and large cyst. 8.9 x 9.6 x 6 cm complex cystic structure within the bilateral adnexa. Free fluid: No free fluid. Bladder: Empty bladder which cannot be evaluated with this probe. IMPRESSION: Complex cystic fluid within the bilateral adnexa likely representing a complicated cyst. Postcontrast CT of the abdomen and pelvis with oral and IV contrast recommended for further evaluation.
[2023-12-28 01:45] VITALS: BP 106/83; PULSE 82; TEMP 98
[2023-12-28] MEDS: IBUPROFEN 600 MG STARTER PACK 4 TAB BTL PO STA (02:04)
[2023-12-28] MEDS: SODIUM CHLORIDE 0.9% 1,000 ML IV STA (02:04)
== END 2023-12-28 02:05 | disposition home or self-care (01) ==
LOC: EC 21:37
DX: N83.291 Other ovarian cyst, right side (principal); N83.292 Other ovarian cyst, left side
CPT/HCPCS: 36415; 76830; 76856; 80053; 81001; 82150; 83690; 84702; 85025; 85610; 85730; 86850; 86900; 86901; 96374; 99284

== ENCOUNTER → 2024-01-23 | Outpatient (CLI) | payer MEDICAID ==
--- NOTE | 2024-01-23 19:06 | CT ---
EXAMINATION TYPE: CT lumbar spine wo con DATE OF EXAM: 01/23/2024 6:21 PM COMPARISON: None HISTORY: low back pain CT DLP: 579 mGycm Automated exposure control for dose reduction was used. Unenhanced CT of the lumbar spine was performed. Bone and soft tissue window settings are submitted as well as coronal and sagittal reconstructions. Findings: There is moderate dextroscoliosis of the lumbar spine. On the lateral view, the lumbar vertebral segments are normal in height and alignment there is no fra cture or subluxation. The disc spaces are well-maintained in height and there is no significant degenerative disc disease. There is bilateral spondylolysis of L5 without spondylolisthesis of L5 on S1. There are no large disc herniations. There is no spinal stenosis. There is no bony encroachment of the neural foramina. Visualized sacrum and SI joints are normal. IMPRESSION: 1. Moderate dextroscoliosis of the lumbar spine. 2. Bilateral spondylolysis of L5 without spondylolisthesis of L5 on S1. 3. No significant degenerative disc disease.
== END | disposition home or self-care (01) ==
LOC: RADCTMAIN 17:45
PROVIDERS: ATTEND Orthopaedic Surgery
DX: M41.86 Other forms of scoliosis, lumbar region (principal)
CPT/HCPCS: 72131

== ENCOUNTER 2024-03-22 01:53 | Emergency (ER) | payer MEDICAID ==
--- NOTE | 2024-03-22 02:22 | ED ---
Abdominal Pain HPI - General Source: patient, RN notes reviewed Mode of arrival: ambulatory Limitations: no limitations <Ferny Mascorro - Last Filed: 03/22/24 05:34> <Lloyd Leroy - Last Filed: 03/22/24 08:03> - General Chief Complaint: Abdominal Pain Stated Complaint: abd pain groin pain 8 weeks Time Seen by Provider: 03/22/24 02:03 - History of Present Illness Initial Comments: 23-year-old female approximately 8 weeks based on last menstrual period (January 23, 2024) G1, presenting to the ED with complaint of abdominal pain. Patient reports yesterday onset of some left lower abdominal pain. Patient states pain seems to radiate to her vaginal area bottom, and to her left flank. Since onset of pain also notes that she has had some difficulties urinating reporting some urinary hesitancy. Otherwise, patient denies vaginal bleeding or vaginal discharge. No changes in bowel habits. No fever or chills. No other complaints at this time. (Ferny Mascorro) - Related Data Previous Rx's Medication Instructions Recorded Ibuprofen [Motrin] 600 mg PO Q8HR PRN #30 tab 12/28/23 Allergies Allergy/AdvReac Type Severity Reaction Status Date / Time No Known Allergies Allergy Verified 03/22/24 02:00 Review of Systems ROS Other: All systems not noted in ROS Statement are negative. <Ferny Mascorro - Last Filed: 03/22/24 05:34> ROS Other: All systems not noted in ROS Statement are negative. <Lloyd Leroy - Last Filed: 03/22/24 08:03> ROS Statement: Those systems with pertinent positive or pertinent negative responses have been documented in the HPI. Past Medical History Past Medical History: No Reported History Additional Past Medical History / Comment(s): ovarian cyst History of Any Multi-Drug Resistant Organisms: None Reported Additional Past Surgical History / Comment(s): left thumb Past Anesthesia/Blood Transfusion Reactions: No Reported Reaction Past Psychological History: No Psychological Hx Reported Smoking Status: Never smoker Past Alcohol Use History: None Reported Past Drug Use History: None Reported <Ferny Mascorro - Last Filed: 03/22/24 05:34> General Exam Limitations: no limitations General appearance: alert, in no apparent distress Eye exam: Present: normal appearance Neck exam: Present: normal inspection Respiratory exam: Present: normal lung sounds bilaterally Cardiovascular Exam: Present: regular rate GI/Abdominal exam: Present: soft (Left lower quadrant tenderness to palpation. No rebound guarding or rigidity. Left CVA tenderness to percussion.) Speculum exam: Present: other (Chaperoned by Jessica MEZA. Os closed. White discharge in vaginal vault. No cervical adnexal tenderness to palpation.) Neurological exam: Present: alert, oriented X3 Skin exam: Present: warm, dry <Ferny Mascorro - Last Filed: 03/22/24 05:34> GI/Abdominal exam: Present: soft <Lloyd Leroy - Last Filed: 03/22/24 08:03> Course Vital Signs 03/22/24 03/22/24 01:55 05:34 Temperature 97.7 F 97.8 F Pulse Rate 80 79 Respiratory 22 18 Rate Blood Pressure 128/85 109/69 O2 Sat by Pulse 100 99 Oximetry Medical Decision Making - Lab Data Result diagrams: 03/22/24 02:46 03/22/24 02:46 <Ferny Mascorro - Last Filed: 03/22/24 05:34> - Lab Data Result diagrams: 03/22/24 02:46 03/22/24 02:46 <Lloyd Leroy - Last Filed: 03/22/24 08:03> - Medical Decision Making Was pt. sent in by a medical professional or institution (, [facility], [facility] [facility], urgent care, hospital, or senior living...) When possible be specific @ -No Did you speak to anyone other than the patient for history (EMS, parent, family, police, friend...)? What history was obtained from this source @ -No Did you review nursing and triage notes (agree or disagree)? Why? @ -I reviewed and agree with nursing and triage notes Were old charts reviewed (outside hosp., previous admission, EMS record, old EKG, old radiological studies, urgent care reports/EKG's, senior living records)? Report findings @ -No old charts were reviewed Differential Diagnosis (chest pain, altered mental status, abdominal pain women, abdominal pain men, vaginal bleeding, weakness, fever, dyspnea, syncope, headache, dizziness, GI bleed, back pain, seizure, CVA, palpatations, mental health, musculoskeletal)? @ -Differential Vaginal Bleeding: Spontaneous , threatened , molar , ectopic , bloody show, incompetent cervix, abruptioplacenta, placenta previa, uterine rupture, dysfunctional uterine bleeding, hemorrhage, uterine fibroids, this is not meant to be an all-inclusive list. EKG interpreted by me (3pts min.). @ -None X-rays interpreted by me (1pt min.). @ -None done CT interpreted by me (1pt min.). @ -None done U/S interpreted by me (1pt. min.). @ -Pending at this time What testing was considered but not performed or refused? (CT, X-rays, U/S, labs)? Why? @ -None What meds were considered but not given or refused? Why? @ -None Did you discuss the management of the patient with other professionals (professionals i.e. DrDevorah, PA, [employer], lab, RT, psych nurse, manager social media, rn documentation, teacher, police or patrol park officer, case maker)? Give summary @ -No Was smoking cessation discussed for >3mins.? @ -No Was critical care preformed (if so, how long)? @ -No Were there social determinants of health that impacted care today? How? (Homeles sness, low income, unemployed, alcoholism, drug addiction, transportation, low edu. Level, literacy, decrease access to med. care, fci, rehab)? @ -No Was there de-escalation of care discussed even if they declined (Discuss DNR or withdrawal of care, Hospice)? DNR status @ -No What co-morbidities impacted this encounter? (DM, HTN, Smoking, COPD, CAD, Cancer, CVA, ARF, Chemo, Hep., AIDS, mental health diagnosis, sleep apnea, morbid obesity)? @ -None Was patient admitted / discharged? Hospital course, mention meds given and route, prescriptions, significant lab abnormalities, going to OR and other pertinent info. @ -Pending 23-year-old female currently 8 weeks based on LMP, A0 presenting to the ED with complaints of abdominal pain. Laboratory studies reviewed. Labs including CBC CMP UA largely unremarkable. Patient is with a positive urine hCG. At this time ultrasounds are pending and case signed out to my attending physician, Dr. Reyes, for further disposition. (Ferny Mascorro) Patient reevaluated after ultrasound imaging is performed. There is a single live intrauterine . With no complicating features. Additionally there is a cystic structure in the abdomen measuring 8 cm. Patient has previous hi story of ultrasound showing this cystic structure. As well as CT from 2020. She has follow-up with obstetrics within the next 6 days. I did reevaluate the patient she is comfortable, abdomen has minimal tenderness no rebound or guarding. Patient is given strict return parameters and should follow closely with obstetrics if her pain should worsen she should have any new symptoms she should return to the emergency department. (Lloyd Leroy) - Lab Data Lab Results 03/22/24 03/22/24 03/22/24 Range/Units 02:40 02:46 02:46 WBC 8.1 (3.8-10.6) k/uL RBC 3.65 L (3.80-5.40) m/uL Hgb 9.7 L (11.4-16.0) gm/dL Hct 30.2 L (34.0-46.0) % MCV 82.7 (80.0-100.0) fL MCH 26.4 (25.0-35.0) pg MCHC 32.0 (31.0-37.0) g/dL RDW 15.7 H (11.5-15.5) % Plt Count 232 (150-450) k/uL MPV 7.9 Neutrophils % 66 % Lymphocytes % 25 % Monocytes % 7 % Eosinophils % 1 % Basophils % 0 % Neutrophils # 5.3 (1.3-7.7) k/uL Lymphocytes # 2.0 (1.0-4.8) k/uL Monocytes # 0.5 (0-1.0) k/uL Eosinophils # 0.1 (0-0.7) k/uL Basophils # 0.0 (0-0.2) k/uL Hypochromasia Slight Sodium 134 L (137-145) mmol/L Potassium 3.8 (3.5-5.1) mmol/L Chloride 107 (98-107) mmol/L Carbon Dioxide 19 L (22-30) mmol/L Anion Gap 8 mmol/L BUN 10 (7-17) mg/dL Creatinine 0.53 (0.52-1.04) mg/dL Est GFR (CKD-EPI)AfAm >90 (>60 ml/min/1.73 sqM) Est GFR (CKD-EPI)NonAf >90 (>60 ml/min/1.73 sqM) Glucose 92 (74-99) mg/dL Calcium 8.9 (8.4-10.2) mg/dL Total Bilirubin 0.3 (0.2-1.3) mg/dL AST 18 (14-36) U/L ALT 9 (4-34) U/L Alkaline Phosphatase 57 (38-126) U/L Total Protein 7.5 (6.3-8.2) g/dL Albumin 4.1 (3.5-5.0) g/dL Urine Color Urine Appearance (Clear) Urine pH (5.0-8.0) Ur Specific [place] (1.001-1.035) Urine Protein (Negative) Urine Glucose (UA) (Negative) Urine Ketones (Negative) Urine Blood (Negative) Urine Nitrite (Negative) Urine Bilirubin (Negative) Urine Urobilinogen (<2.0) mg/dL Ur Leukocyte Esterase (Negative) Urine HCG, Qual (Not Detectd) Blood Type B Positive Blood Type Recheck B Pos Bld Type Recheck Status No Antibody Screen NEGATIVE Spec Expiration Date 03/25/2024 - 233903/22/24 03/22/24 Range/Units 03:33 03:33 WBC (3.8-10.6) k/uL RBC (3.80-5.40) m/uL Hgb (11.4-16.0) gm/dL Hct (34.0-46.0) % MCV (80.0-100.0) fL MCH (25.0-35.0) pg MCHC (31.0-37.0) g/dL RDW (11.5-15.5) % Plt Count (150-450) k/uL MPV Neutrophils % % Lymphocytes % % Monocytes % % Eosinophils % % Basophils % % Neutrophils # (1.3-7.7) k/uL Lymphocytes # (1.0-4.8) k/uL Monocytes # (0-1.0) k/uL Eosinophils # (0-0.7) k/uL Basophils # (0-0.2) k/uL Hypochromasia Sodium (137-145) mmol/L Potassium (3.5-5.1) mmol/L Chloride (98-107) mmol/L Carbon Dioxide (22-30) mmol/L Anion Gap mmol/L BUN (7-17) mg/dL Creatinine (0.52-1.04) mg/dL Est GFR (CKD-EPI)AfAm (>60 ml/min/1.73 sqM) Est GFR (CKD-EPI)NonAf (>60 ml/min/1.73 sqM) Glucose (74-99) mg/dL Calcium (8.4-10.2) mg/dL Total Bilirubin (0.2-1.3) mg/dL AST (14-36) U/L ALT (4-34) U/L Alkaline Phosphatase (38-126) U/L Total Protein (6.3-8.2) g/dL Albumin (3.5-5.0) g/dL Urine Color Colorless Urine Appearance Clear (Clear) Urine pH 6.0 (5.0-8.0) Ur Specific [place] 1.013 (1.001-1.035) Urine Protein Negative (Negative) Urine Glucose (UA) Negative (Negative) Urine Ketones Negative (Negative) Urine Blood Negative (Negative) Urine Nitrite Negative (Negative) Urine Bilirubin Negative (Negative) Urine Urobilinogen <2.0 (<2.0) mg/dL Ur Leukocyte Esterase Negative (Negative) Urine HCG, Qual Detected (Not Detectd) Blood Type Blood Type Recheck Bld Type Recheck Status Antibody Screen Spec Expiration Date Disposition <Ferny Mascorro - Last Filed: 03/22/24 05:34> Is patient prescribed a controlled substance at d/c from ED?: No Time of Disposition: 07:56 <Lloyd Leroy - Last Filed: 03/22/24 08:03> Clinical Impression: Abdominal pain affecting Disposition: HOME SELF-CARE Condition: Good Instructions (If sedation given, give patient instructions): Abdominal Pain in (ED) Referrals: Kenn Cordova MD [Primary Care Provider] - 1-2 days Deepti Williamson DO [Doctor of Osteopathic Medicine] - 1-2 days
[2024-03-22] MEDS: SODIUM CHLORIDE 0.9% 1,000 ML IV STA (02:40)
[2024-03-22] MEDS: ACETAMINOPHEN TAB 500 MG TAB PO STA (02:41)
[2024-03-22 03:15] LABS: Basophils % (A) 0 %; Eosinophils # (A) 0.1 k/uL (0-0.7); Eosinophils % (A) 1 %; HCT 30.2 % (34.0-46.0); HGB 9.7 gm/dL (11.4-16.0); Hypochromasia Slight; Lymphocytes % (A) 25 %; MCH 26.4 pg (25.0-35.0); MCV 82.7 fL (80.0-100.0); Mean Platelet Volume 7.9; Monocytes # (A) 0.5 k/uL (0-1.0); Monocytes % (A) 7 %; Neutrophils # (A) 5.3 k/uL (1.3-7.7); Neutrophils % (A) 66 %; Platelet Count 232 k/uL (150-450); RBC 3.65 m/uL (3.80-5.40); RDW 15.7 % (11.5-15.5); WBC 8.1 k/uL (3.8-10.6)
[2024-03-22 03:34] LABS: ALT 9 U/L (4-34); AST 18 U/L (14-36); African American GFR (CKD) >90 (>60 ml/min/1.73 sqM); Albumin 4.1 g/dL (3.5-5.0); Alkaline Phosphatase 57 U/L (38-126); Anion Gap 8 mmol/L; Blood Urea Nitrogen 10 mg/dL (7-17); Calcium 8.9 mg/dL (8.4-10.2); Carbon Dioxide 19 mmol/L (22-30); Chloride 107 mmol/L (98-107); Glucose 92 mg/dL (74-99); Non-African American GFR(CKD) >90 (>60 ml/min/1.73 sqM); Potassium 3.8 mmol/L (3.5-5.1); Sodium 134 mmol/L (137-145); Total Bilirubin 0.3 mg/dL (0.2-1.3); Total Protein 7.5 g/dL (6.3-8.2)
[2024-03-22 03:48] LABS: Appearance,Urine Clear (Clear); Bilirubin,Urine Negative (Negative); Blood,Urine Negative (Negative); Color,Urine Colorless; Glucose,Urine (UA) Negative (Negative); Ketones,Urine Negative (Negative); Leukocyte Esterase,Urine Negative (Negative); Nitrite,Urine Negative (Negative); Protein,Urine Negative (Negative); Specific Gravity,Urine 1.013 (1.001-1.035); Urobilinogen,Urine <2.0 mg/dL (<2.0)
--- NOTE | 2024-03-22 06:23 | US ---
ADDENDUM - Added by Jose Angel Dominguez MD on 03/22/2024 6:33 AM (-04:00) EXAM: US Retroperitoneal Limited, Renal CLINICAL HISTORY: ITS.REASON US Reason: LLQ/flank pain, dysuria 8 weeks preg TECHNIQUE: Real-time limited ultrasound of the retroperitoneum with image documentation. COMPARISON: No relevant prior studies available. FINDINGS: Right kidney: Unremarkable. No stones. No hydronephrosis. The right kidney measures 9.3 cm in length. Left kidney: Unremarkable. No stones. No hydronephrosis. The left kidney measures 9.4 cm in length. Other findings: Single, live, intrauterine . heart rate measures 159 bpm. [place]-rump length measures 1.6 cm corresponding to gestational age of 8 weeks 1 day. Complex mass in the midline pelvis measuring up to 8.9 cm. Consider MRI if there is further concern. IMPRESSION: 1. Technically challenging examination due to overlying bowel gas. 2. Single, live, intrauterine . heart rate measures 159 bpm. 3. [place]-rump length measures 1.6 cm corresponding to gestational age of 8 weeks 1 day. 4. Complex mass in the midline pelvis measuring up to 8.9 cm. Consider MRI if there is further concern. 5. Unremarkable appearance of the kidneys. EXAM: US Retroperitoneal Limited, Renal CLINICAL HISTORY: ITS.REASON US Reason: LLQ/flank pain, dysuria 8 weeks preg TECHNIQUE: Real-time limited ultrasound of the retroperitoneum with image documentation. COMPARISON: No relevant prior studies available. FINDINGS: Right kidney: Unremarkable. No stones. No hydronephrosis. The right kidney measures 9.3 cm in length. Left kidney: Unremarkable. No stones. No hydronephrosis. The left kidney measures 9.4 cm in length. Other findings: Single, live, intrauterine . heart rate measures 159 bpm. [place]-rump length measures 1.6 cm corresponding to gestational age of 8 weeks 1 day. Hemorrhagic right ovarian cyst measuring up to 7.6 cm. ACR White Paper guidelines (Chin, et. al. JACR 2020;17(2):248-254) recommend follow-up pelvic ultrasound in 2-3 months. IMPRESSION: 1. Technically challenging examination due to overlying bowel gas. 2. Single, live, intrauterine . heart rate measures 159 bpm. 3. [place]-rump length measures 1.6 cm corresponding to gestational age of 8 weeks 1 day. 4. Hemorrhagic right ovarian cyst measuring up to 7.6 cm. ACR White Paper guidelines (Chin, et. al. JACR 2020;17(2):248-254) recommend follow-up pelvic ultrasound in 2-3 months. 5. Unremarkable appearance of the kidneys.
--- NOTE | 2024-03-22 06:33 | US ---
EXAM: US , Transvaginal CLINICAL HISTORY: ITS.REASON US Reason: LLQ/flank pain, dysuria 8 weeks preg TECHNIQUE: Real-time transvaginal obstetrical ultrasound of the maternal pelvis and a first trimester with image documentation. Transvaginal imaging was used for better evaluation of the fetus and adnexa. COMPARISON: No relevant prior studies available. FINDINGS: Gestation: [place]-rump length measures 1.7 cm corresponding to gestational age of 8 weeks 1 day. heart rate measures 159 bpm. Placenta/amniotic fluid: Cannot be adequately evaluated due to the early gestational age. Uterus/cervix: Unremarkable. No myometrial mass. The uterus measures 9.7 x 5.8 x 6.3 cm. Ovaries: Hemorrhagic cyst within the midline pelvis measuring up to 8. 9 cm. This obscures evaluation of the ovaries. Consider MRI if there is further concern. The right ovary is not visualized. The left ovary is not visualized. Free fluid: No free fluid. IMPRESSION: 1. Single live intrauterine with a heart rate of 159 bpm. [place]-rump length measures 1.7 cm corresponding to gestational age of 8 weeks 1 day. 2. Complex mass within the midline pelvis measuring up to 8.9 cm. This obscures evaluation of the ovaries. Consider MRI if there is further concern.
[2024-03-22] MEDS: MORPHINE SULFATE 2 MG/ML SYRINGE IVP STA (08:13)
[2024-03-22] MEDS: polyethylene glycoL 3350 17 GM POWD.PACK PO STA (09:08)
[2024-03-22 09:10] VITALS: BP 104/67; PULSE 68; RESP 16; TEMP 98.8
== END 2024-03-22 09:10 | disposition home or self-care (01) ==
LOC: EC 01:53
DX: O26.891 Other specified pregnancy related conditions, first trimester (principal); R10.32 Left lower quadrant pain; Z3A.08 8 weeks gestation of pregnancy
CPT/HCPCS: 36415; 86900; 86901; 80053; 85025; 86850; 81003; 81025; 76801; 76817; 76770; 99284; 96374; 96361 ×5; J2270